=== PATIENT | female | born 1995 | race African-American/Black ===

== ENCOUNTER 2019-03-14 13:44 | Emergency (ER) | payer OTHER ==
[2019-03-14 13:58] VITALS: BP 139/80
--- NOTE | 2019-03-14 14:40 | ED Physician Documentation ---
PD HPI HEAD INJURY - Stated complaint Stated Complaint: GLF - HEAD/BODY PX - Chief complaint Chief Complaint: Trauma Hd/Nk - History obtained from History obtained from: Patient - History of Present Illness Mechanism of head injury: Fell (down 5 stairs onto buttock and back, hit back of her head on the stair. This was a mechanical fall backward) Where head injury occurred: Home Timing - onset: Today (just prior to arrival) Severity Comments: mild Location of injury: Right, Back (and shoulder pain, back of head pain) Quality of pain: Pain, Aching Associated symptoms: No: LOC, AMS, Amnesia, Nausea / vomiting, Neck pain, Paresthesias, Seizures, Ear drainage, Nasal drainage Symptoms improve with: Rest Symptoms worsen with: Movement Contributing factors: No: Anticoagulated, Intoxicated Similar symptoms before: Has not had sx before Recently seen: Not recently seen - Treatment prior to arrival Treatment prior to arrival: none Review of Systems Ten Systems: 10 systems reviewed and negative Constitutional: reports: Reviewed and negative Eyes: reports: Reviewed and negative Cardiac: denies: Chest pain / pressure Respiratory: denies: Dyspnea GI: denies: Abdominal Pain, Nausea, Vomiting Skin: reports: Reviewed and negative Musculoskeletal: reports: Back pain, Joint pain. denies: Neck pain, Extremity swelling, Joint swelling, Pain with weight bearing Neurologic: reports: Headache, Head injury. denies: Generalized weakness, Focal weakness, Numbness, Difficulty speaking, Near syncope, Syncope, Seizure, Confused, Altered mental status, LOC Psychiatric: reports: Reviewed and negative Immunocompromised: reports: Reviewed and negative PD PAST MEDICAL HISTORY - Past Medical History Past Medical History: No - Present Medications Home Medications: Ambulatory Orders Medication Instructions Recorded Confirmed hydroCHLOROthiazide [Hydrodiuril] 12.5 mg PO DAILY 03/14/19 03/14/19 - Allergies Allergies/Adverse Reactions: Allergies Allergy/AdvReac Type Severity Reaction Status Date / Time No Known Drug Allergies Allergy Verified 03/14/19 13:58 PD ED PE NORMAL - Vitals Vital signs reviewed: Yes - General General: Alert and oriented X 3, No acute distress, Well developed/nourished - HEENT HEENT: Atraumatic, PERRL, EOMI, Ears normal, Moist mucous membranes, Pharynx benign - Neck Neck: Supple, no meningeal sign, No bony TTP, No JVD, Other (full ROM, painless) - Cardiac Cardiac: RRR - Respiratory Respiratory: No respiratory distress - Abdomen Abdomen: Soft, Non tender, Non distended - Female Female : Deferred - Rectal Rectal: Deferred - Back Back: No CVA TTP, No spinal TTP - Derm Derm: Normal color, Warm and dry, No rash - Extremities Extremities: No deformity, No tenderness to palpate, Normal ROM s pain, No edema, No calf tenderness / cord - Neuro Neuro: Alert and oriented X 3, chief design branch 2-12 intact, No motor deficit, No sensory deficit, Normal speech Eye Opening: Spontaneous Motor: Obeys Commands Verbal: Oriented GCS Score: 15 - Psych Psych: Normal mood, Normal affect PD ED PE EXPANDED - Neck Neck: No tenderness - Cardiac Cardiac: Other (chest wall tenderness). No: Chest wall TTP - Back Back: Normal exam, Normal ROM. No: Vertebral tenderness, Soft tissue tenderness, Limited ROM, Straight leg raise + R, Straight leg raise + L - Extremities Extremities: Right shoulder (full ROM, no tenderness, no clavicle tenderness, neurovascularly intact. ) Results - Vitals Vitals: Vital Signs - 24 hr 03/14/19 13:57 Temperature 36.9 C Heart Rate 76 Respiratory 20 Rate Blood Pressure 139/80 H O2 Saturation 99 Oxygen O2 Source Room air PD MEDICAL DECISION MAKING - ED course Complexity details: considered differential, d/w patient ED course: ddx- concussion, minor head injury, ICH, neck sprain, shoulder sprain, back sprain, vertebral injury 23 y/o F well appearing with minor fall down stairs onto buttock, mid back and hit head on a step. No LOC, not anticoagulated, no vomiting, no dizziness, normal neuro exam. No external signs of trauma. No deformity, fulL ROM. Continue supportive care with NSAIDs prn and f/u as needed. Return to ED if worsening pain, vomiting, or new concerning symptoms. Departure - Departure Clinical Impression: Fall down stairs Qualifiers: Encounter type: initial encounter Qualified Code(s): W10.8XXA - Fall (on) (from) other stairs and steps, initial encounter Sprain of right shoulder Qualifiers: Encounter type: initial encounter Condition: Stable Record reviewed to determine appropriate education?: Yes Instructions: ED Head Injury Closed Follow-Up: your, doctor [Other] - As Needed Comments: You like have a mild shoulder sprain and minor head injury. You are not currently having any signs of concussion. You can take ibuprofen 600mg every 8 hours as needed for pain. Return to the ED if you develop vomiting, worsening headache, or other new concerning symptoms.
== END 2019-03-14 14:46 | disposition home or self-care (01) ==
LOC: ED 13:44
DX: S43.401A Unspecified sprain of right shoulder joint, initial encounter (principal); S09.90XA Unspecified injury of head, initial encounter; W10.8XXA Fall (on) (from) other stairs and steps, initial encounter; Y92.009 Unspecified place in unspecified non-institutional (private) residence as the place of occurrence of the external cause
CPT/HCPCS: 99281; 99282

== ENCOUNTER 2020-01-26 18:18 | Emergency (ER) | payer OTHER ==
[2020-01-26 18:42] VITALS: BP 143/82
[2020-01-26 19:03] LABS: BILIRUBIN,URINE NEGATIVE (NEGATIVE); GLUCOSE, URINE (UA) NEGATIVE (NEGATIVE); KETONES,URINE (UA) NEGATIVE (NEGATIVE); LEUKOCYTE ESTERASE, URINE NEGATIVE (NEGATIVE); NITRITE,URINE NEGATIVE (NEGATIVE); OCCULT BLOOD,URINE NEGATIVE (NEGATIVE); PROTEIN,URINE NEGATIVE (NEGATIVE); UROBILINOGEN,URINE 0.2 (NORMAL) E.U./dL (NORMAL)
[2020-01-26 19:07] LABS: CLARITY,URINE CLEAR (CLEAR)
--- NOTE | 2020-01-26 19:45 | Ultrasound Report ---
PROCEDURE: OB First Trimester INDICATIONS: fall, 13 weeks preg, abd pain OUTSIDE/PRIOR DATING DATA: Last menstrual period (LMP): 10/26/2019. LMP-based estimated date of delivery (ERIN): 08/01/2020. First dating scan (date and location): 01/26/2020. Estimated date of delivery (ERIN) from first dating scan: 08/01/2020. TECHNIQUE: Real-time scanning was performed of the fetus and maternal pelvic organs, with image documentation. COMPARISON: None available. FINDINGS: Embryo: There is a single intrauterine with heart rate of 16 1 bpm. Bemiss-rump lengt h measures 6.9 cm corresponding to gestational age of 13 weeks 1 day. Biparietal diameter: 2.1 cm, 13 weeks 3 days Head circumference: 7.9 cm, 13 weeks 3 days Femur length: 0.8 cm, 12 weeks 4 days Composite gestational age: 13 weeks 1 day There is a developing posterior placenta. No periplacental fluid collections to suggest a subchorioni c hematoma or abruption. Measurement variability in dating: +/- 4 weeks by LMP, +/- 7 days by mean sac diameter (use before 6 weeks gestation if crown-rump length not able to be measured), +/- 5 days by crown-rump length (6-12 weeks gestation). Maternal organs: Ovaries appear within normal size limits, measuring 4.4 x 2.0 x 2.5 cm on the right and 2.3 x 3.6 x 1.3 cm on the left. Limited images through the kidneys demonstrate slight fullness of the right renal collecting system. The cervix appears closed measuring approximately 3.8 cm. IMPRESSION: 1. Single living intrauterine with composite gestational age of 13 weeks 1 day correspondin g to an estimated delivery date of 08/01/2020. Findings are concordant with patient's dates by LMP. 2. No periplacental fluid collection or subchorionic hematomas. Reviewed by: Adriel Hicks MD on 01/26/2020 7:44 PM PDT Approved by: Adriel Hicks MD on 01/26/2020 7:44 PM PDT Station ID: [id number]
--- NOTE | 2020-01-26 20:23 | ED Physician Documentation ---
History of Present Illness - Stated complaint Stated Complaint: GLF - 13WKS - Chief complaint Chief Complaint: Trauma Abd - History obtained from History obtained from: Patient - History of Present Illness Timing: Today Pain level max: 2 Pain level now: 0 - Additonal information Additional information: Patient is a 24-year-old female approximately 13 weeks . She states that she slipped and fell on a toy car this morning. She has mild lower abdominal cramping. No bleeding. Nothing makes it better or worse. No other injuries. 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 : None HEENT: None Psych: None, Anxiety Musculoskeletal: None Derm: None Other Past Medical History: IBS - Past Surgical History Past Surgical History: Yes General: Cholecystectomy /DRIVER RECRUITER: section - Present Medications Home Medications: Ambulatory Orders Medication Instructions Recorded Confirmed hydroCHLOROthiazide [Hydrodiuril] 12.5 mg PO DAILY 03/14/19 03/14/19 - Allergies Allergies/Adverse Reactions: Allergies Allergy/AdvReac Type Severity Reaction Status Date / Time No Known Drug Allergies Allergy Verified 01/26/20 18:27 - Social History Does the pt smoke?: No Smoking Status: Never smoker Does the pt drink ETOH?: No Does the pt have substance abuse?: No - Immunizations Immunizations are current?: Yes - POLST Patient has POLST: No PD ED PE NORMAL - Vitals Vital signs reviewed: Yes - General General: Alert and oriented X 3, No acute distress - HEENT HEENT: Moist mucous membranes - Neck Neck: Supple, no meningeal sign - Cardiac Cardiac: RRR, Strong equal pulses - Respiratory Respiratory: No respiratory distress, Clear bilaterally - Abdomen Abdomen: Soft, Non tender, Non distended - Back Back: No spinal TTP - Derm Derm: Warm and dry - Extremities Extremities: No edema - Neuro Neuro: Alert and oriented X 3 - Psych Psych: Normal mood, Normal affect Results - Vitals Vitals: Vital Signs - 24 hr 09/01/26/20 01/26/20 18:24 18:41 19:55 Temperature 36.4 C L 36.8 C Heart Rate 92 79 80 Respiratory 16 18 16 Rate Blood Pressure 149/80 H 143/82 H 143/82 H O2 Saturation 100 100 100 01/26/20 20:50 Temperature 36.5 C Heart Rate 78 Respiratory 16 Rate Blood Pressure 143/82 H O2 Saturation 99 Oxygen O2 Source Room air - Labs Labs: Laboratory Tests 01/26/20 18:59 Urine Color YELLOW Urine Clarity CLEAR Urine pH 7.0 Ur Specific [place] <=1.005 Urine Protein NEGATIVE Urine Glucose (UA) NEGATIVE Urine Ketones NEGATIVE Urine Occult Blood NEGATIVE Urine Nitrite NEGATIVE Urine Bilirubin NEGATIVE Urine Urobilinogen 0.2 (NORMAL) Ur Leukocyte Esterase NEGATIVE Ur Microscopic Review NOT INDICATED Urine Culture Comments NOT INDICATED - Rads (name of study) OB US Radiology: Prelim report reviewed, EMP read contemporaneously PD MEDICAL DECISION MAKING - ED course Complexity details: reviewed results, re-evaluated patient, considered differential, d/w patient ED course: Patient status post a fall today. No acute findings on ultrasound. Does not appear to have affected the . Not have any vaginal bleeding. Abdominal cramping resolved. We will have her follow-up with her OB for further care. Patient counseled regarding signs and symptoms for which I believe and urgent re-evaluation would be necessary. Patient with good understanding of and agreement to plan and is comfortable going home at this time This document was made in part using voice recognition software. While efforts are made to proofread this document, sound alike and grammatical errors may occur. 1. Single living intrauterine with composite gestational age of 13 weeks 1 day corresponding to an estimated delivery date of 08/01/2020. Findings are concordant with patient's dates by LMP. 2. No periplacental fluid collection or subchorionic hematomas. Departure - Departure Disposition: 01 Home, Self Care Clinical Impression: Qualifiers: Weeks of gestation: 13 weeks Qualified Code(s): Z3A.13 - 13 weeks gestation of Fall Qualifiers: Encounter type: initial encounter Qualified Code(s): W19.XXXA - Unspecified fall, initial encounter Condition: Good Instructions: ED Preg Established Normal Sxs Follow-Up: your,doctor as scheduled. [Other] Comments: Return if you worsen. Follow-up with your doctor as needed for further care. Your ultrasound does not show any acute abnormalities tonight Discharge Date/Time: 01/26/20 20:50
== END 2020-01-26 20:50 | disposition home or self-care (01) ==
LOC: ED 18:18
DX: O99.89 Other specified diseases and conditions complicating pregnancy, childbirth and the puerperium (principal); R10.30 Lower abdominal pain, unspecified; O9A.211 Injury, poisoning and certain other consequences of external causes complicating pregnancy, first trimester; W01.198A Fall on same level from slipping, tripping and stumbling with subsequent striking against other object, initial encounter; Z3A.13 13 weeks gestation of pregnancy
CPT/HCPCS: 76801; 81001; 81003; 87086; 99282; 99284

== ENCOUNTER 2020-04-02 18:18 | Emergency (ER) | payer OTHER ==
[2020-04-02] MEDS ORDERED: TETANUS/DIPHTHERIA/PERTUSSIS 0.5 ML SYRINGE IM ONE (18:43)
--- NOTE | 2020-04-02 18:44 | ED Physician Documentation ---
History of Present Illness - Stated complaint Stated Complaint: RT FOOT LAC - Chief complaint Chief Complaint: Laceration - History of Present Illness Timing: Prior to arrival - Additonal information Additional information: 24-year-old female presents to the emergency department for evaluation of glass on the heel of her foot. She stepped on broken glass at home while barefoot this morning. Unknown last tetanus. 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 : None HEENT: None Psych: None, Anxiety Musculoskeletal: None Derm: None - Past Surgical History Past Surgical History: Yes General: Cholecystectomy /COMMERCIAL LOAN SPECIALIST: section - Present Medications Home Medications: Ambulatory Orders Medication Instructions Recorded Confirmed Pnv No.95/Ferrous Fum/Folic AC 1 tab PO DAILY 04/02/20 04/02/20 [ Tablet] - Allergies Allergies/Adverse Reactions: Allergies Allergy/AdvReac Type Severity Reaction Status Date / Time No Known Drug Allergies Allergy Verified 04/02/20 18:24 - Social History Does the pt smoke?: No Smoking Status: Never smoker Does the pt drink ETOH?: No Does the pt have substance abuse?: No - Immunizations Immunizations are current?: Yes - POLST Patient has POLST: No PD ED PE EXPANDED - Extremities Extremities: Right foot (small 1-2 mm laceration heel of right foot ) Results - Vitals Vitals: Vital Signs - 24 hr 04/02/20 04/02/20 18:21 19:05 Temperature 36.6 C 36.6 C Heart Rate 95 95 Respiratory 17 17 Rate Blood Pressure 134/89 H 134/89 H O2 Saturation 100 100 Oxygen O2 Source Room air - Rads (name of study) right foot Radiology: EMP read indepedently (Foreign body seen on the lateral view superficial heel) Procedures - FB removal FB location: Subcutaneous (right hrrl) FB removal preparation: Local anesthesia-specify (1% lidocaine) Removal method: Irrigated/flushed, Foreceps FB removal aftercare: No complications, Patient tolerated well, Removed successfully (After foot was thoroughly cleansed with Betadine this provider was injecting 1% lidocaine under the level of where I believed to the foreign body to be. The pressure and small volume of lidocaine successfully pushed the glass/ceramic splinter out of her foot.) PD MEDICAL DECISION MAKING - ED course Complexity details: reviewed results, considered differential, d/w patient ED course: 24-year-old female presents emergency department to have a glass splinter removed from the heel of her foot. Her kids broke some Elisabeth ornaments at home and she stepped on some debris. On x-ray you can see a shallow foreign body under the heel on the lateral view. This foreign body was successfully removed during the time it which I was injecting lidocaine. The pressure and volume of the lidocaine pushed to the splinter out. bacitracin was applied to the wound. Will defer antibiotics as this has not been in very long and there are no signs of infection. Emergent worsen return precautions discussed. Patient is incidentally 22 weeks . She has movement. Denies lower pelvic pain vaginal bleeding or loss of fluids. She was double shielded to obtain the x-ray of the foot and she did sign consent. Departure - Departure Disposition: 01 Home, Self Care Clinical Impression: Foreign body of right heel Condition: Stable Record reviewed to determine appropriate education?: Yes Comments: The wound on your foot should heal well. I do recommend that you wash it daily with warm soap and water and then apply any simple antibiotic ointment. If you have redness, fevers milky drainage increased pain or any concerns of infection please return to the emergency department. Please continue to follow-up with your vp lab for further evaluation of your
[2020-04-02] MEDS ORDERED: BUFFERED LIDOCAINE 10 ML SYRINGE SUBQ STA (18:50)
--- NOTE | 2020-04-02 19:15 | XRAY Report ---
PROCEDURE: Foot 2 View RT INDICATIONS: stepped on glass; eval for fb TECHNIQUE: 2 views of the foot were acquired. COMPARISON: None FINDINGS: Bones: No fractures or dislocations. No suspicious bony lesions. Soft tissues: No tibiotalar joint effusion. Achilles tendon appears normal. A questionable radiopa que foreign body is present within the soft tissues overlying the inferior calcaneus visualized on th e lateral view. IMPRESSION: Questionable foreign body within the soft tissues of the heel as described above. Findings could be c onsistent with a small shard of glass. Reviewed by: Izabella Mireles MD on 04/02/2020 7:14 PM PST Approved by: Izabella Mireles MD on 04/02/2020 7:14 PM PST Station ID: [id number]
[2020-04-02 19:22] VITALS: BP 135/85
== END 2020-04-02 19:21 | disposition home or self-care (01) ==
LOC: ED 18:18
DX: O9A.212 Injury, poisoning and certain other consequences of external causes complicating pregnancy, second trimester (principal); S91.341A Puncture wound with foreign body, right foot, initial encounter; W45.8XXA Other foreign body or object entering through skin, initial encounter; W25.XXXA Contact with sharp glass, initial encounter; Y93.01 Activity, walking, marching and hiking; Y92.009 Unspecified place in unspecified non-institutional (private) residence as the place of occurrence of the external cause; Z23 Encounter for immunization; Z3A.22 22 weeks gestation of pregnancy
CPT/HCPCS: 90471; 99281; 99283